=== PATIENT | female | born 1940 | race Hispanic/Latino ===

== ENCOUNTER 2017-02-23 13:59 | Outpatient (CLI) | payer MEDICARE ==
--- NOTE | 2017-02-23 15:45 | Ultrasound Report ---
BILATERAL DIGITAL DIAGNOSTIC MAMMOGRAM with CAD and LEFT BREAST ULTRASOUND: 02/23/17 CLINICAL: Left outer breast lump. COMPARISON:02/21/16 mammogram and 02/07/15 left breast ultrasound. FINDINGS: The breasts are predominantly fatty with a few bilateral retroareolar fibroglandular densities. A left focal asymmetry at 6 o'clock persists with spot compression and is identified on the lateral view.No architectural distortion or suspicious calcifications. The right breast is negative.. Ultrasound of the left breast (including all four quadrants and the retroareolar area) was performed and demonstrated normal fibroglandular and fatty structures except for a retroareolar cyst measuring at 6 o'clock measuring 3 x 3 x 2 mm. This correlates with a slightly larger more complex cyst identified on 02/07/15. No solid mass or shadowing. The describes vague lumpiness in the outer portion of the left breast but this area is negative on both the mammogram and the ultrasound. IMPRESSION: Benign cyst left breast and negative right breast. BI-RADS CATEGORY: 2 -- Benign RECOMMENDATION: Clinical follow-up and routine mammographic screening in one year. ACR BI-RADS MAMMOGRAPHIC CODES: 0 = Needs additional imaging evaluation; 1 = Negative; 2 = Benign; 3 = Probably benign; 4 = Suspicious; 5 = Malignant; 6 = Known biopsy-proven malignancy COMMENT: 1. Dense breast tissue, i.e., adenosis, fibrocystic changes, etc., may obscure an underlying neoplasm. 2. Approximately 10% of cancers are not detected with mammography. 3. A negative mammography report should not delay biopsy if a clinically suspicious mass is present. COMMENT: Patient follow-up letters are generated by our [employer] application.
== END 2017-02-23 14:00 | disposition home or self-care (01) ==
LOC: SPVWC 13:59
PROVIDERS: ATTEND Family Medicine
DX: N60.02 Solitary cyst of left breast (principal)
CPT/HCPCS: 76641; G0204; 77066

== ENCOUNTER 2018-03-29 11:25 | Outpatient (CLI) | payer MEDICARE ==
--- NOTE | 2018-03-30 11:44 | Mammography Report ---
BILATERAL DIGITAL SCREENING MAMMOGRAM with CAD: 03/29/18 11:25:00 CLINICAL: Routine screening. COMPARISON: 10/26/16 and 02/21/16 FINDINGS: There are bilateral scattered areas of fibroglandular density.No mass, architectural distortion or suspicious calcifications. IMPRESSION: No mammographic evidence of malignancy. BI-RADS CATEGORY: 1 -- Negative RECOMMENDATION: Routine mammographic screening in one year. COMMENT: Patient follow-up letters are generated by our [employer] application.
== END 2018-03-29 11:26 | disposition home or self-care (01) ==
LOC: SPVWC 11:25
PROVIDERS: ATTEND Family Medicine
DX: Z12.31 Encounter for screening mammogram for malignant neoplasm of breast (principal)
CPT/HCPCS: 77067